=== PATIENT | male | born 2000 | race Caucasian/White ===

== ENCOUNTER 2023-12-06 23:40 | Emergency (ER) | payer OTHER, SELFPAY ==
[2023-12-06 23:43] VITALS: BP 120/84
--- NOTE | 2023-12-07 | ED.GENMED ---
History of Present Illness
<MURTAZA Nelson - Last Filed: 12/07/23 01:05>
General
Chief Complaint: Skin Problem
Time Seen by Provider: 12/06/23 23:47
History of Present Illness
History of Present Illness:
Pt is a 23 y/o male with no significant PMHx presenting for a rash x3 days. 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 He states it was initially located to a small patch on his right arm and has continued to spread. He states it is not on both
arms, chest, abdomen, and right flank. He states it is pruritic and hurts. He states it is also oozing clear fluid. He attempted wrapping his right arm with gauze and states the fluid penetrated through the gauze. He has used calamine lotion with no
relief. He states he has had poison cassy multiple times in the past and calamine lotion usually alleviates the symptoms. He denies any fevers, headaches, sore throat, URI symptoms, abdominal pain, nausea.
Past History
<MURTAZA Nelson - Last Filed: 12/07/23 01:05>
Past History
ED Past Medical History: None
ED Past Surgical History: None
Social History
Alcohol: None
Drug: None
Personal: Single
Living: with family
Employment: Employed
Family History
Family History: Other (Noncontributory)
Phy Exam
<MURTAZA Nelson - Last Filed: 12/07/23 01:05>
Physical Exam
Physical Exam:
GENERAL: Alert , in no apparent distress
EYE: pupils equal and reactive
Throat: Airway intact, no exudates
NECK: Supple, no significant adenopathy.
CARDIAC: Regular rate and rhythm .
LUNGS: Clear breath sounds bilaterally, no acute respiratory distress, no wheezes/rales/rhonchi
ABDOMEN: Soft, nondistended, nontender, no cvat
NEUROLOGICAL: Alert and oriented, no focal neuro deficits
SKIN: Erythematous vesicles and papules in linear and annual distribution on the arm b/l, abdomen, right flank.
MUSCULOSKELETAL: No edema, well perfused.
PSYCH: Normal and appropriate interaction.
Course
<ST LesliePA - Last Filed: 12/07/23 01:05>
Orders/Labs/Results
Orders:
Orders
12/07/23 00:25
Dexamethasone Pf [Decadron] 10 mg PO NOW STA
Diphenhydramine [Benadryl] 25 mg PO NOW STA
Vital Signs
Initial and Last Documented VS:
Initial Vital Signs
Temp Pulse Resp BP Pulse Ox
98.4 F 52 20 120/84 100
12/06/23 23:43 12/06/23 23:43 12/06/23 23:43 12/06/23 23:43 12/06/23 23:43
Last Documented Vital Signs
Temp Pulse Resp BP Pulse Ox
98.4 F 52 20 120/84 100
12/06/23 23:43 12/06/23 23:43 12/06/23 23:43 12/06/23 23:43 12/06/23 23:43
<Corky Wilburn DO - Last Filed: 12/07/23 00:46>
Orders/Labs/Results
Orders:
Orders
12/07/23 00:25
Dexamethasone Pf [Decadron] 10 mg PO NOW STA
Diphenhydramine [Benadryl] 25 mg PO NOW STA
Vital Signs
Initial and Last Documented VS:
Initial Vital Signs
Temp Pulse Resp BP Pulse Ox
98.4 F 52 20 120/84 100
12/06/23 23:43 12/06/23 23:43 12/06/23 23:43 12/06/23 23:43 12/06/23 23:43
Last Documented Vital Signs
Temp Pulse Resp BP Pulse Ox
98.4 F 52 20 120/84 100
12/06/23 23:43 12/06/23 23:43 12/06/23 23:43 12/06/23 23:43 12/06/23 23:43
<MURTAZA Nelson - Last Filed: 12/07/23 01:05>
*Pulse Oximetry
Patient hypoxic: no
*EKG
Interpreted by ED Provider?: NA
*Tax Adjuster Interpretation
Rate: Tax Adjuster- N/A
*Critical Care Note
Total Time (30-74mins, 75-104mins- exclusive of procedures): Not Applicable
ED Attending Note
<MURTAZA Nelson - Last Filed: 12/07/23 01:05>
-
Portions of this chart may have been created with voice recognition software.� Occasional wrong word or��sound alike� substitutions may have occurred due to the inherent limitations of voice recognition software.
<Corky Wilburn DO - Last Filed: 12/07/23 00:46>
ED Attending Note
Patient seen and examined by attending physician: Yes
I performed the substantive portion of visit, reviewed & personally made and approve the management plan that is documented in note by myself or BRANDEE.: Yes
ED Attending Note:
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 He is here because his calamine lotion is not working. Denies fever, chills, nausea or vomiting. Reports no chest pain or shortness of breath. Patient was seen
in conjunction with the PA student. I have reviewed and agree with his history and treatment plan. On physical exam patient is awake alert and oriented x 3, no acute distress. He does have RHUS dermatitis visible on his right arm. It is oozing
and linear in fashion.
Discharge Plan
Departure
Patient Disposition: Home (Routine Discharge)
Date of Disposition: 12/07/23
Time of Disposition: 00:40
Patient with high blood pressure during this ER visit?: Yes
Condition: Good
Discharge Problem:
Poison cassy
Instructions: Poison cassy, Skin Rash (DC), Wound Care (DC)
Prescriptions:
New
prednisone 10 mg tablet
10 mg PO DIRECTED Qty: 45 0RF
Rx Instructions:
Take 50mg PO x 3 days, 40mg PO x 3 days,30mg PO x3 days, 20mg PO x 3 days, 10mg PO x 3 days
diphenhydramine HCl [Benadryl] 25 mg capsule
25 mg PO TID PRN (Reason: allergy symptoms) Qty: 14 0RF
No Action
ibuprofen 600 mg tablet
600 mg PO Q6H PRN (Reason: pain) Qty: 20 0RF
prednisone 10 mg Tablet
See Rx Instructions .ROUTE .COMPLEX Qty: 45 0RF
Rx Instructions:
Take By Mouth:
50 mg daily x3 days, 40 mg daily x3 days,
30 mg daily x3 days, 20 mg daily x3 days,
10 mg daily x3 days
Referrals:
[facility] [Outside]
UNKNOWN - PT DOES,NOT KNOW [Family Provider] -
Activity Restrictions/Additional Instructions:
It was a pleasure meeting you and taking part in your care. We hope for your continued healing and wellness.
Please read discharge instructions in their entirety. However, they are for general education and may not describe your exact diagnosis at discharge. Information on your ER visit and medical conditions were discussed with you along with appropriate
follow up information...
If indicated, please take your medications as instructed and indicated on discharge paperwork.
Please schedule a follow up appointment as directed. Call to schedule an appointment
Please return to the emergency department with ANY change in, persisting, or worsening of symptoms. If any of your symptoms do not improve, or persist, or become more severe within 6-12 hours, please return to the emergency department for further
care.
Please return to the emergency department if you develop a headache, neck pain/stiffness, fever greater than 100.4F, chest pain, shortness of breath, persistent nausea, vomiting, slurred speech, difficulty walking, numbness/tingling, weakness, signs
of infection or any other symptoms that are worrisome to you.
If you have any questions or concerns please do not hesitate to call the Hospital at or E-mail me directly at [email or web address]
Interventions
Interventions:
*Risk Screen - Suicide Last Done: 12/06/23 23:43
*General Assessment Last Done: 12/06/23 23:43
*Neglect/Abuse Screening Last Done: 12/06/23 23:43
ED- Fall Risk Assessment Last Done: 12/06/23 23:43
*ED COVID-19 Vaccine History Last Done: 12/06/23 23:43
*Nursing Disposition Last Done: 12/07/23 00:50
Discharge Date and Time
Discharge Date/Time: 12/07/23 00:51
Print Language: MOHAWK
[2023-12-07] MEDS: DECADRON 10 MG PO (00:45)
[2023-12-07] MEDS: BENADRYL 25 MG PO (00:45)
== END 2023-12-07 00:51 | disposition home or self-care (01) ==
LOC: EMR 23:40
PROVIDERS: EMERGENCY PHYSICIAN Student in an Organized Health Care Education/Training Program
DX: L23.7 Allergic contact dermatitis due to plants, except food (principal); R21 Rash and other nonspecific skin eruption
CPT/HCPCS: 99282

== ENCOUNTER 2025-02-10 18:24 | Emergency (ER) | payer OTHER, SELFPAY ==
[2025-02-10 18:30] VITALS: BP 151/92
--- NOTE | 2025-02-10 18:55 | ED.GENMED ---
History of Present Illness
General
Chief Complaint: Chest Pain
Time Seen by Provider: 02/10/25 18:55
History of Present Illness
History of Present Illness:
FOCUSED PAST MEDICAL HISTORY
- ADHD
REVIEW OF OLD RECORDS
- I reviewed records, the patient has had a few ED visits but no hospitalizations at [facility]
Note:
CHIEF COMPLAINT(S)
Chest pain.
HISTORY OF PRESENT ILLNESS
The patient is a 24-year-old male who presents with a chief complaint of chest pain. The patient reports experiencing left-sided chest pain localized to a small area over the past five to six months. The pain occurs randomly and can last for about
five minutes at a time before it subsides. The most severe episode occurred yesterday at around 11:30 AM while the patient was at work, preparing to enter a customers house. The pain was severe enough to 'knock the breath out' of him, but he does
not currently feel it upon palpation in the emergency room. The chest pain is not associated with any abdominal pain, vomiting, fever, or shortness of breath. The pain occurs intermittently and can happen during periods of rest, such as lying down
over the weekend, as well as during work activities. 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 However, the randomness and duration of the episodes suggest otherwise. His mother just
heard about this for the first time yesterday. She is concerned about his symptoms. She does request a troponin be obtained which I feel is reasonable but relatively low yield.
PAST MEDICAL AND SURIGICAL HISTORY
No pertinent past medical or surgical history mentioned.
PHYSICAL EXAM
General: Alert, no acute distress.
Skin: Warm, dry.
Head: Normocephalic, atraumatic.
Neck: Supple, trachea midline.
Eye, Ears, Nose, Mouth, and Throat: Oral mucosa moist.
Cardiovascular: Normal peripheral perfusion, No edema. There is no significant chest wall tenderness.
Respiratory: Respirations are non-labored, lung sounds are clear.
Gastrointestinal: Abdomen nondistended.
Back: Normal range of motion, Normal alignment.
Musculoskeletal: Normal range of motion, normal strength.
Neurological: Alert and oriented to person, place, time, and situation, No focal neurological deficit observed.
Psychiatric: Cooperative, appropriate mood and affect.
PLAN
1. Perform a Troponin test to rule out cardiac issues, given the patients normal electrocardiogram and atypical presentation for a cardiac event.
2. Conduct basic blood work.
3. Consider a chest X-ray to further evaluate the source of chest pain.
4. Assess for any musculoskeletal causes based on the description and occupational history.
DIFFERENTIAL DIAGNOSIS
The Differential Diagnosis includes, in no particular order and is not limited to:
1. Costochondritis
2. Musculoskeletal strain
3. Gastroesophageal reflux disease (GERD)
4. Atypical angina
5. Pneumothorax
6. Pleuritis
7. Precordial catch syndrome
8. Esophageal spasm
9. Pericarditis
10. Anxiety-related chest pain
RADIOLOGY
- Chest x-ray obtained and is clear
EKG
- Sinus 64, normal axis, no acute ST abnormality, no old to compare
LABS
- CBC, chemistries, troponin normal
UPDATE
-SUMMARY OF ENCOUNTER
The 24-year-old male patient was seen in the emergency department with a chief complaint of left-sided chest pain persisting over the past five to six months. The pain was described as intermittent, with episodes lasting about five minutes and
occurring both at rest and during work activities. 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 In the emergency department, a
troponin test was conducted, alongside an electrocardiogram (EKG) and a chest X-ray. The troponin level was within normal range, the EKG was normal, and the chest X-ray was clear. Upon discussion, it was considered that the chest pain could
potentially be related to gastroesophageal reflux disease (GERD).
DISPOSITION
Discharge.
ASSESSMENT
The differential diagnosis includes costochondritis, musculoskeletal strain, gastroesophageal reflux disease (GERD), atypical angina, pneumothorax, pleuritis, precordial catch syndrome, esophageal spasm, pericarditis, and anxiety-related chest pain.
PLAN
The plan includes discharging the patient with a recommendation to try [id number] omeprazole, a proton pump inhibitor, for two weeks to determine if the chest pain is related to stomach acid or GERD.
INDEPENDENT REVIEW OF LABS AND INTERPRETATION OF TESTS
- My independent review of the troponin test indicates the levels are within the normal range.
- My independent interpretation of the EKG is that it is normal.
- My independent interpretation of the chest X-ray, as read by the radiologist, is that it is clear.
PATIENT EDUCATION AND COUNSELING
The patient was advised on the possibility of the chest pain being related to GERD and instructed on the use of omeprazole for a potential acid-related issue. It was explained that the medication helps decrease the production of acid. The patient
understood it might take several days to notice improvement, and a two-week course was recommended for evaluation of symptoms.
FOLLOW-UP INSTRUCTIONS
The patient was advised to follow up with primary care if symptoms persist, worsen, or if they are not alleviated by the treatment with omeprazole.
MEDICATION RECONCILIATION
The patient was recommended to take an [id number] proton pump inhibitor, omeprazole, for a two-week course.
MEDICAL DECISION MAKING
- Number and Complexity of Problems Addressed: Differential diagnosis includes costochondritis, musculoskeletal strain, GERD, atypical angina, pneumothorax, pleuritis, precordial catch syndrome, esophageal spasm, pericarditis, anxiety-related chest
pain.
- Data:
Category 1:
- The troponin test was ordered and reviewed.
- The EKG was independently interpreted as normal.
- The chest X-ray was read as clear by the radiologist.
Category 3:
- There was no specific discussion documented with other healthcare providers as per the conversation.
-Risk:
Consideration of Admission/Observation: Escalation of care including admission/observation was considered given the complexity and risk of the patients presenting complaint, exam findings, and/or their underlying comorbidities. However, ultimately,
I feel the patient is safe for outpatient management with close follow-up. Reasoning: Work-up reassuring, does not reveal any acute life/organ-threatening processes, patients symptoms well-controlled upon reevaluation, reexamination is reassuring,
vitals are stable, patient agreeable with discharge, reliable for follow-up.
DIAGNOSIS
- Chest pain
Past History
Past History
ED Past Medical History: None
ED Past Surgical History: None
Social History
Alcohol: None
Drug: None
Personal: Single
Living: with family
Employment: Employed
Family History
Family History: Other (Noncontributory)
Phy Exam
Physical Exam
Physical Exam:
See HPI
Scores
Heart Score for Chest Pain Patients
STEMI patient?: Not applicable
Course
Orders/Labs/Results
Orders:
Orders
02/10/25 18:25
Electrocardiogram (*1) Urgent
Reason for Study: Chest Pain
EKG- Treatment ONCE
02/10/25 19:01
CR Chest - 2 Views Urgent
Comment:
Reason For Exam: cp
02/10/25 19:16
Complete Blood Count/With Diff Urgent
Comprehensive Metabolic Panel Urgent
Troponin I Urgent
02/10/25 19:16
02/10/25 19:16
Vital Signs
Initial and Last Documented VS:
Initial Vital Signs
Temp Pulse Resp BP Pulse Ox
36.7 C 69 17 151/92 100
02/10/25 18:30 02/10/25 18:30 02/10/25 18:30 02/10/25 18:30 02/10/25 18:30
Last Documented Vital Signs
Temp Pulse Resp BP Pulse Ox
36.7 C 47 18 123/69 100
02/10/25 18:30 02/10/25 19:45 02/10/25 19:45 02/10/25 19:13 02/10/25 18:56
*Pulse Oximetry
SaO2: 100
Oxygen Mode of Delivery: Room air
Patient hypoxic: no
*Critical Care Note
Total Time (30-74mins, 75-104mins- exclusive of procedures): Not Applicable
ED Attending Note
-
Portions of this chart may have been created with voice recognition software.� Occasional wrong word or��sound alike� substitutions may have occurred due to the inherent limitations of voice recognition software.
Discharge Plan
Departure
Patient Disposition: Home (Routine Discharge)
Date of Disposition: 02/10/25
Time of Disposition: 21:54
Patient with high blood pressure during this ER visit?: Yes
Discharge Problem:
Chest pain
Instructions: Acid Reflux and GERD in Adults (DC), Chest Pain PCP Follow Up
Prescriptions:
No Action
ibuprofen 600 mg tablet
600 mg PO Q6H PRN (Reason: pain) Qty: 20 0RF
prednisone 10 mg Tablet
See Rx Instructions .ROUTE .COMPLEX Qty: 45 0RF
Rx Instructions:
Take By Mouth:
50 mg daily x3 days, 40 mg daily x3 days,
30 mg daily x3 days, 20 mg daily x3 days,
10 mg daily x3 days
prednisone 10 mg tablet
10 mg PO DIRECTED Qty: 45 0RF
Rx Instructions:
Take 50mg PO x 3 days, 40mg PO x 3 days,30mg PO x3 days, 20mg PO x 3 days, 10mg PO x 3 days
diphenhydramine HCl [Benadryl] 25 mg capsule
25 mg PO TID PRN (Reason: allergy symptoms) Qty: 14 0RF
Activity Restrictions/Additional Instructions:
Cardiac blood work and EKG showed no sign of heart attack. I do question if your symptoms could be related to stomach acid. Consider taking a 2-week course of [id number] omeprazole. Return here if worse or other concerns. Chest x-ray is
clear.
Interventions
Interventions:
*Risk Screen - Suicide Last Done: 02/10/25 18:32
*General Assessment Last Done: 02/10/25 18:32
*Neglect/Abuse Screening Last Done: 02/10/25 18:32
*ED COVID-19 Vaccine History Last Done: 02/10/25 18:32
*ED Influenza Vaccine History Last Done: 02/10/25 18:32
ED- Cardiac Assessment Last Done: 02/10/25 19:44
Discharge Date and Time
Print Language: YI
[2025-02-10 19:13] VITALS: BP 123/69
[2025-02-10 19:32] LABS: Hematocrit 41.6 % (39.0-52.0); Hemoglobin 14.9 g/dL (13.0-18.0); Mean Corp Hgb Conc. 35.8 g/dL (33.0-37.0); Mean Corpuscular Volume 82.1 fL (80.0-94.0); Nucleated Red Blood Cells % 0 % (-); Platelet Count 251 10^3/uL (130-400); Red Cell Dist. Width 12.8 % (11.5-14.5)
[2025-02-10 19:52] LABS: ALT (SGPT) 25 U/L (0-50); AST (SGOT) 25 U/L (17-59); Albumin 4.9 g/dl (3.5-5.0); Alkaline Phosphatase 69 U/L (38-126); Blood Urea Nitrogen 13 mg/dl (9-20); Calcium 9.6 mg/dl (8.4-10.2); Carbon Dioxide 26 mmol/L (22-30); Chloride 106 mmol/L (98-107); Glucose 94 mg/dl (70-99); Potassium 3.9 mmol/L (3.5-5.1); Sodium 139 mmol/L (135-145); Total Protein 7.1 g/dl (6.3-8.2); eGFR > 60.00
[2025-02-10 20:05] LABS: Troponin I 0.019 ng/ml
== END 2025-02-10 22:26 | disposition home or self-care (01) ==
LOC: EMR 18:24
PROVIDERS: EMERGENCY PHYSICIAN Emergency Medicine
DX: R07.9 Chest pain, unspecified (principal); R03.0 Elevated blood-pressure reading, without diagnosis of hypertension; F90.9 Attention-deficit hyperactivity disorder, unspecified type
CPT/HCPCS: 99284; 71046; 80053; 84484; 85025; 93005